=== PATIENT | female | born 1955 | race Caucasian/White ===

== ENCOUNTER → 2021-03-10 | Outpatient (CLI) | payer SELFPAY ==
[2021-03-12 16:22] LABS: CORONAVIRUS (COVID19) CSH-NRL Negative (Negative)
== END | disposition home or self-care (01) ==
LOC: LAB SHORT 14:00 → LAB 14:00
PROVIDERS: Physician Assistant
DX: Z20.822 Contact with and (suspected) exposure to COVID-19 (principal)
CPT/HCPCS: U0003

== ENCOUNTER 2024-05-24 11:59 | Day surgery (SDC) | payer OTHER ==
[~2024-05-24] VITALS: Ht 160 cm; Wt 74.0 kg
[~2024-05-24 11:59] MED LIST: Balanced Salt Epinephrine Irrigation Solution 500 mL IR SCH; Lidocaine HCl/Pf 1% 5 ML VIAL XX SCH; Moxifloxacin HCL 0.5 MG/0.1 ML 0.4MLSYR RIGHTEYE SCH; PHENYLEPHRINE\\TROPICAMIDE\\TETRACAINE OPHTHALMIC DILATING SOLN RIGHTEYE PRN; Povidone-Iodine 450 DROP/30 ML Solution ONE; Povidone-Iodine 450 DROP/30 ML Solution RIGHTEYE SCH; Tetracaine HCl/Pf 0.5% Opth Soln 4 ml ONE; Triamcinolone Inj Susp 40 MG / ML 1ML Vial INJ SCH; Triamcinolone Inj Susp 40 MG / ML 1ML Vial ONE
[2024-05-24] MEDS ORDERED: LOSARTAN-HCTZ1 EACH PO (12:32)
[2024-05-24] MEDS ORDERED: Crestor40 MG PO (12:32)
[2024-05-24] MEDS ORDERED: OMEP20ER PO (12:32)
[2024-05-24] MEDS ORDERED: Voltaren100 GM (12:33)
[2024-05-24] MEDS ORDERED: AMPDEX15CR PO (12:33)
[2024-05-24] MEDS ORDERED: NS 500 ML IV ONE (12:35)
[2024-05-24] MEDS ORDERED: Diazepam 5 MG Tab ONE (12:40)
[2024-05-24 13:51] VITALS: BP 132/79
--- NOTE | 2024-05-24 13:59 | NUR ---
05/24/24 Mike9 Marlene Loyola IV WNL, TOTAL OF 200ML USED FROM THE 500MG BAG. 300ML WASTED.
== END 2024-05-24 13:56 | disposition home or self-care (01) ==
LOC: ORSCSDS 11:59
PROVIDERS: Ophthalmology
PROC: 08RJ3JZ Replacement of Right Lens with Synthetic Substitute, Percutaneous Approach (ICD-10-PCS; principal; 2024-05-24 13:30)
DX: H25.813 Combined forms of age-related cataract, bilateral (principal); I10 Essential (primary) hypertension; K21.9 Gastro-esophageal reflux disease without esophagitis; Z79.899 Other long term (current) drug therapy
CPT/HCPCS: A9270; J3301; J7040; V2632

== ENCOUNTER 2024-06-07 07:24 | Day surgery (SDC) | payer OTHER ==
[~2024-06-07] VITALS: Ht 160 cm; Wt 73.8 kg
[~2024-06-07 07:24] MED LIST changes: +AMPDEX15CR PO; +Crestor40 MG PO; +LOSARTAN-HCTZ1 EACH PO; +Lidocaine HCl/Pf 1% 5 ML VIAL ONE; +Moxifloxacin HCL 0.5 MG/0.1 ML 0.4MLSYR LEFTEYE SCH; -Moxifloxacin HCL 0.5 MG/0.1 ML 0.4MLSYR RIGHTEYE SCH; +OMEP20ER PO; +PHENYLEPHRINE\\TROPICAMIDE\\TETRACAINE OPHTHALMIC DILATING SOLN LEFTEYE PRN; -PHENYLEPHRINE\\TROPICAMIDE\\TETRACAINE OPHTHALMIC DILATING SOLN RIGHTEYE PRN; +Povidone-Iodine 450 DROP/30 ML Solution LEFTEYE SCH; -Povidone-Iodine 450 DROP/30 ML Solution RIGHTEYE SCH; +Voltaren100 GM
[2024-06-07] MEDS ORDERED: Diazepam 5 MG Tab ONE (07:55)
[2024-06-07 09:16] VITALS: BP 132/79
== END 2024-06-07 09:23 | disposition home or self-care (01) ==
LOC: ORSCSDS 07:24
PROVIDERS: Ophthalmology
PROC: 08RK3JZ Replacement of Left Lens with Synthetic Substitute, Percutaneous Approach (ICD-10-PCS; principal; 2024-06-07 09:00)
DX: H25.812 Combined forms of age-related cataract, left eye (principal); H52.202 Unspecified astigmatism, left eye; Z96.1 Presence of intraocular lens; I10 Essential (primary) hypertension; Z79.899 Other long term (current) drug therapy
CPT/HCPCS: A9270; J2003; J3301; V2632